=== PATIENT | male | born 1955 | race Caucasian/White ===

== ENCOUNTER 2025-05-29 14:36 | Emergency (ER) | payer OTHER ==
[~2025-05-29] VITALS: Ht 172.7 cm; Wt 69.1 kg
[~2025-05-29 14:36] MED LIST: CELEXA20 MG PO; ELIQUIS5 MG PO; LEVOTHYROXINE50 MCG PO; MEDRO DOSE PACK; METOPROLOL TART25 MG PO; NEURONTIN300 MG PO
[2025-05-29 14:38] VITALS: TEMP 98.5
[2025-05-29] MEDS ORDERED: SODIUM CHLORIDE 0.9% 1000ML 1,000 ML ONE (15:33)
[2025-05-29] MEDS: SODIUM CHLORIDE 0.9% 1000ML 1,000 ML IV STA (15:42)
[2025-05-29] MEDS ORDERED: DEXAMETHASONE SOD PHOS 10 MG/1 ML VIAL IV ONE (15:45)
[2025-05-29] MEDS ORDERED: DEXAMETHASONE SOD PHOS INJ 4 MG/ML SDV ONE (16:10)
[2025-05-29] MEDS: KETOROLAC TROMETHAMINE 30 MG/ML VIAL IV STA (16:20)
[2025-05-29] MEDS: ASPIRIN 325 MG TAB PO ONE (16:20)
[2025-05-29] MEDS ORDERED: IOPAMIDOL 370 MG/ML 100 ML INFUS..BTL INJ ONE (16:22)
[2025-05-29] MEDS: DEXAMETHASONE SOD PHOS INJ 4 MG/ML SDV IV ONE (16:25)
[2025-05-29] MEDS ORDERED: ONDANSETRON HCL INJ 2MG/ML 2ML 2 MG/ML VIAL ONE (17:56)
[2025-05-29] MEDS: ONDANSETRON HCL INJ 2MG/ML 2ML 2 MG/ML VIAL IV STA (18:01)
[2025-05-29] MEDS: Morphine 4mg INJECTION 4 MG/ML INJ IV ONE (18:01)
[2025-05-29 18:54] VITALS: PULSE 69; RESP 15; O2SAT 98
== END 2025-05-29 19:05 | disposition other institution (70) ==
LOC: FSED 14:43
DX: I63.9 Cerebral infarction, unspecified (principal); H53.40 Unspecified visual field defects; R51.9 Headache, unspecified; R26.89 Other abnormalities of gait and mobility; H53.9 Unspecified visual disturbance; R29.810 Facial weakness; I10 Essential (primary) hypertension; Z79.01 Long term (current) use of anticoagulants; Z79.890 Hormone replacement therapy
CPT/HCPCS: 70450; 70496; 70498; 80053; 84484; 85025; 85610; 93005; 96374; 96375; 99284; J1100 ×2; J1885; J2270; J2405; J7030; Q9967